=== PATIENT | male | born 1985 ===

== ENCOUNTER 2019-08-25 15:42 | Emergency (ER) | payer MEDICAID, SELFPAY ==
[2019-08-25] VITALS (7 sets, daily range): BP systolic 106–133; BP diastolic 74–91; PULSE 82–91; RESP 16–18; TEMP 37; O2SAT 96–100; BMI 21.8
--- NOTE | 2019-08-25 16:47 | W.ED.ABDPA2 ---
Documented by User: Cuco Lopez DO 08/25/19 21:38 HPI - Abdominal Pain General: Chief Complaint: Abdominal Pain Stated Complaint: abd pain/N/V Time Seen by Provider: 08/25/19 16:38 History of Present Illness: HPI narrative: 34-year-old male presents emergency room with complaint of epigastric pain for last 3 weeks. He was previously on pantoprazole stopped it because he lost his insurance coverage and did not have a job. He has been vomiting 1 or 2 times a day states is mostly count of foamy mucus he is not had any hematemesis denies coffee-ground emesis denies hematochezia or melena. He has noted that by varying his diet avoiding caffeine's carbonated beverages and meats it does improve it. He is not had any acholic stools. Denies fever denies any recent cough or cold symptoms denies dysuria urgency or frequency his bowel movements have been regular and seem normal tone he has tried various [id number] medications such as Mylanta and Pepto-Bismol with no significant relief. Of note he previously had a significant gastric ulcer that actually perforated and he required laparotomy. MD elicited complaint: abdominal pain Pertinent past history: gastrointestinal bleeding Onset (ago): week(s) (3) Pain Consistency: constant and colicky Location: Epigastric Severity: moderate Quality: cramping Radiation: none Migration to: no migration Exacerbating factors: eating (Particular foods see above) Context: history of similar episodes (Previous perforated ulcer with laparotomy) Associated Symptoms: Reports nausea, poor appetite and vomiting; Denies change in stool character, chills, coffee ground emesis, GI cramping, fever(s), hematochezia, hematuria, hematemesis and melena Treatments prior to arrival: antacids Review of Systems Const: Denies: fever or chills ENMT: Denies: throat pain, ear pain, nasal discharge or nasal congestion Card: Denies: chest pain, edema, shortness of breath on exertion or shortness of breath when lying down Resp: Denies: shortness of breath, productive cough or non-productive cough GI: Reports: abdominal pain, nausea and vomiting; Denies: vomiting blood, coffee grounds in vomit, cramping, change in stool character, blood in stool or black tarry stool : Denies: blood in urine Skin/Breast: Denies: rash or itching PFS ED PFSH: Medical History (Updated 08/25/19 @ 18:46 by Karolyn Valdez) Gastroesophageal reflux Perforated peptic ulcer Surgical History (Updated 08/25/19 @ 16:50 by Cuco Lopez DO) S/P laparotomy Social History Smoking and tobacco status: current every day smoker Physical Exam Const: COMMON NORMALS: no apparent distress GENERAL APPEARANCE: cooperative and comfortable ORIENTATION/CONSCIOUSNESS: Yes awake, Yes oriented to person, Yes oriented to place and Yes oriented to time HENMT: COMMON NORMALS: normocephalic, head/scalp atraumatic, hearing grossly normal bilaterally, external ears normal, EAC's normal, TM's normal bilaterally, nasal mucous membranes and turbinates normal, moist oral mucous membranes and oropharynx normal HEAD & SCALP: normocephalic and atraumatic NOSE: nasal mucous membranes and turbinates normal EXTERNAL EAR: Yes external ears normal EXTERNAL AUDITORY CANAL: EAC's normal TYMPANIC MEMBRANE: TM's normal bilaterally Eye: COMMON NORMALS: PERRL, EOMs intact bilaterally, conjunctivae normal and no scleral icterus CONJUNCTIVA: Yes conjunctivae normal PUPIL: Yes PERRL Neck/C-Spine: COMMON NORMALS: full ROM, no lymphadenopathy, supple and no JVD Lymph: LYMPHATIC: no lymphadenopathy noted and no lymphedema noted Resp: COMMON NORMALS: normal respiratory effort, no retractions, no use of accessory muscles and clear to auscultation bilaterally AUSCULTATION: clear to auscultation bilaterally Cardio: COMMON NORMALS: no JVD, regular rate, regular rhythm and no murmurs RATE: regular rate RHYTHM: regular rhythm GI: COMMON NORMALS: no hepatosplenomegaly AUSCULTATION: Yes normoactive bowel sounds PALPATION: Yes tender (Epigastric), No guarding, No rigid, Yes no hepatosplenomegaly, No mass and No rebound tenderness present RECTAL EXAM: Yes normal sphincter tone and Yes heme negative stool Extremity: COMMON NORMALS: normal to inspection, normal capillary refill, no clubbing, cyanosis or edema, no calf tenderness and no pedal edema Neuro: SENSORIUM/ORIENTATION: Yes oriented to person, Yes oriented to place and Yes oriented to time Skin: COMMON NORMALS: no rashes or lesions noted GENERAL SKIN EXAM: no rashes or lesions noted Course Vital Signs: Vital signs: Vital Signs Temperature 98.6 F 08/25/19 16:04 Pulse Rate 84 08/25/19 20:26 Respiratory Rate 16 08/25/19 20:26 Blood Pressure 133/74 08/25/19 20:26 Pulse Oximetry 96 08/25/19 20:26 MDM - Abdominal Pain MDM Narrative: Medical decision making narrative: Case signed out to Dr. Bradshaw at change of shift Lab Data: Labs: Lab Results 08/25/19 08/25/19 Range/Units 16:26 16:26 WBC 6.9 (4.0-10.0) 10^3/ uL RBC 5.41 H (4.1-5.3) 10^6/u L Hgb 16.0 (11.7-16.6) g/dL Hct 49.8 (42.0-52.0) % MCV 92.1 (80-94) fL MCH 29.6 (28.0-34.0) pg MCHC 32.1 (30.0-36.0) g/dL RDW 12.2 (12.1-15.1) % Plt Count 265 (130-400) 10^3/c mm MPV 9.9 (7.4-10.4) fL Neut % (Auto) 59.9 % Lymph % (Auto) 29.5 % [place] % (Auto) 6.1 % Eos % (Auto) 3.8 % Baso % (Auto) 0.6 % Neut # (Auto) 4.1 (1.8-7.7) 10^3/u L Lymph # (Auto) 2.0 (0.8-4.8) 10^3/u L [place] # (Auto) 0.4 (0.2-0.9) 10^3/u L Eos # (Auto) 0.3 (0.0-0.8) 10^3/u L Baso # (Auto) 0.0 (0.0-0.1) 10^3/u L Nucleated RBC % (a uto) 0 % Nucleated RBCs # 0.0 /100WBC Sodium 137 (136-145) mmol/L Potassium 3.9 (3.5-5.1) mmol/L Chloride 98 (98-107) mmol/L Carbon Dioxide 26 (22-29) mmol/L Anion Gap 16.9 (5-19) BUN 13 (6-20) mg/dL Creatinine 0.6 L (0.7-1.2) mg/dL GFR Calculation 155.2 H (90-130) mL/min Glucose 89 (65-115) mg/dL Calculated Osmolal ity 280 L (285-295) mOsm/k g Calcium 10.0 (8.5-10.5) mg/dL Total Bilirubin 0.4 (0.15-1.2) mg/dL AST 18 (0-40) U/L ALT 11 (0-41) U/L Alkaline Phosphata se 62 (40-130) IU/L Total Protein 8.0 (6.6-8.7) g/dL Albumin 4.7 (3.5-5.2) g/dL Globulin 3.3 (1.3-4.6) g/dL Lipase 14 (13-60) U/L Discharge Plan Discharge Patient Disposition: Home, Self-Care Clinical Impression: Enteritis Abdominal pain Qualifiers: Abdominal location: generalized Qualified Code(s): R10.84 - Generalized abdominal pain Condition: Stable Prescriptions: New Flagyl 500 mg tablet 500 mg PO Q8H 7 Days Qty: 21 RF: 0 Cipro 500 mg tablet 500 mg PO BID Qty: 20 RF: 0 promethazine 25 mg tablet 25 mg PO Q4H PRN (Reason: nausea and vomiting) Qty: 20 RF: 0 Protonix 40 mg tablet,delayed release (DR/EC) 40 mg PO DAILY 56 Days RF: 0 Discharge Orders: Discharge Order (Routine); Ordered 08/25/19 Ordered By: Karolyn Valdez Referrals: Kenton Epperson MD [Physician] - 1-3 days Discharge Diet: Advance as tolerated and Clear Liquid Discharge Activity: Increase activity as tolerated Patient Instructions: Abdominal Pain (ED) Activity Restrictions/Additional Instructions: Please return to the ER immediately for any of the signs or symptoms listed on your discharge instruction sheets, worsening/changing of your symptoms, you are not getting better as quickly as expected, or for ANY other cause or concerns. Follow a clear liquid diet and advance it as tolerated. Return to the ER for increased pain, fever, continued vomiting, or for any other cause for concern. Be certain to follow-up with Dr. Epperson on an outpatient basis for possible scoping of your stomach. Discharge Date/Time: 08/25/19 20:33 Sign Out Sign Out Data: Patient Sign Out occurred on 08/25/19 at 18:11. Patient's care was discussed, and care was transferred from Cuco Lopez DO to Karolyn Valdez. Sign Out Comment: Care signed out today and change of shift CT pending Last updated by Cuco Lopez DO at 08/25/19 18:04 Coding Level of Care Code ED [facility] Quality Control Technician for Chg Fwd Exam Comprehensive Documented by User: Karolyn Valdez 08/25/19 22:09 HPI - Abdominal Pain General: Chief Complaint: Abdominal Pain Stated Complaint: abd pain/N/V Time Seen by Provider: 08/25/19 16:38 [facility] ED PFSH: Medical History (Updated 08/25/19 @ 18:46 by Karolyn Vladez) Gastroesophageal reflux Perforated peptic ulcer Surgical History (Updated 08/25/19 @ 16:50 by Cuco Lopez DO) S/P laparotomy Social History Smoking and tobacco status: current every day smoker Course Vital Signs: Vital signs: Vital Signs Temperature 98.6 F 08/25/19 16:04 Pulse Rate 84 08/25/19 20:26 Respiratory Rate 16 08/25/19 20:26 Blood Pressure 133/74 08/25/19 20:26 Pulse Oximetry 96 08/25/19 20:26 MDM - Abdominal Pain MDM Narrative: Medical decision making narrative: 184 -patient care inherited by me at change of shift from Dr. Lopez. Please see his note for his history, physical exam and medical decision-making notes. Upon my exam the patient has no signs of peritonitis but has mild diffuse tenderness without any rebound or guarding. His vital signs are stable he is not tachycardic and is afebrile. I see no sign of sepsis. CT scan shows a normal appendix with no evidence of bowel obstruction, bowel perforation, gastric or duodenal ulcer. CT does shows diffuse small bowel wall thickening which I believe is most consistent with an infectious or inflammatory enteritis per his history. The patient is feeling better but his pain is not completely gone. I will go and give him a small amount of IV fluids, and medicines for his discomfort and he agrees to try a short course of Cipro and Flagyl with nausea medicine and to follow a clear liquid diet. I did review the symptoms for which he needs to return here for recheck and he understands these. He agrees to follow-up with Dr. Epperson as an outpatient for possible endoscopy for GERD and reflux disease. Lab Data: Labs: Lab Results 08/25/19 08/25/19 Range/Units 16:26 16:26 WBC 6.9 (4.0-10.0) 10^3/ uL RBC 5.41 H (4.1-5.3) 10^6/u L Hgb 16.0 (11.7-16.6) g/dL Hct 49.8 (42.0-52.0) % MCV 92.1 (80-94) fL MCH 29.6 (28.0-34.0) pg MCHC 32.1 (30.0-36.0) g/dL RDW 12.2 (12.1-15.1) % Plt Count 265 (130-400) 10^3/c mm MPV 9.9 (7.4-10.4) fL Neut % (Auto) 59.9 % Lymph % (Auto) 29.5 % [place] % (Auto) 6.1 % Eos % (Auto) 3.8 % Baso % (Auto) 0.6 % Neut # (Auto) 4.1 (1.8-7.7) 10^3/u L Lymph # (Auto) 2.0 (0.8-4.8) 10^3/u L [place] # (Auto) 0.4 (0.2-0.9) 10^3/u L Eos # (Auto) 0.3 (0.0-0.8) 10^3/u L Baso # (Auto) 0.0 (0.0-0.1) 10^3/u L Nucleated RBC % (a uto) 0 % Nucleated RBCs # 0.0 /100WBC Sodium 137 (136-145) mmol/L Potassium 3.9 (3.5-5.1) mmol/L Chloride 98 (98-107) mmol/L Carbon Dioxide 26 (22-29) mmol/L Anion Gap 16.9 (5-19) BUN 13 (6-20) mg/dL Creatinine 0.6 L (0.7-1.2) mg/dL GFR Calculation 155.2 H (90-130) mL/min Glucose 89 (65-115) mg/dL Calculated Osmolal ity 280 L (285-295) mOsm/k g Calcium 10.0 (8.5-10.5) mg/dL Total Bilirubin 0.4 (0.15-1.2) mg/dL AST 18 (0-40) U/L ALT 11 (0-41) U/L Alkaline Phosphata se 62 (40-130) IU/L Total Protein 8.0 (6.6-8.7) g/dL Albumin 4.7 (3.5-5.2) g/dL Globulin 3.3 (1.3-4.6) g/dL Lipase 14 (13-60) U/L Discharge Plan Discharge Patient Disposition: Home, Self-Care Clinical Impression: Enteritis Abdominal pain Qualifiers: Abdominal location: generalized Qualified Code(s): R10.84 - Generalized abdominal pain Condition: Stable Prescriptions: New Flagyl 500 mg tablet 500 mg PO Q8H 7 Days Qty: 21 RF: 0 Cipro 500 mg tablet 500 mg PO BID Qty: 20 RF: 0 promethazine 25 mg tablet 25 mg PO Q4H PRN (Reason: nausea and vomiting) Qty: 20 RF: 0 Protonix 40 mg tablet,delayed release (DR/EC) 40 mg PO DAILY 56 Days RF: 0 Discharge Orders: Discharge Order (Routine); Ordered 08/25/19 Ordered By: Karolyn Valdez Referrals: Kenton Epperson MD [Physician] - 1-3 days Discharge Diet: Advance as tolerated and Clear Liquid Discharge Activity: Increase activity as tolerated Patient Instructions: Abdominal Pain (ED) Activity Restrictions/Additional Instructions: Please return to the ER immediately for any of the signs or symptoms listed on your discharge instruction sheets, worsening/changing of your symptoms, you are not getting better as quickly as expected, or for ANY other cause or concerns. Follow a clear liquid diet and advance it as tolerated. Return to the ER for increased pain, fever, continued vomiting, or for any other cause for concern. Be certain to follow-up with Dr. Epperson on an outpatient basis for possible scoping of your stomach. Discharge Date/Time: 08/25/19 20:33 Sign Out Sign Out Data: Patient Sign Out occurred on 08/25/19 at 18:11. Patient's care was discussed, and care was transferred from Cuco Lopez DO to Karolyn Valdez. Sign Out Comment: Care signed out today and change of shift CT pending Last updated by Cuco Lopez DO at 08/25/19 18:04 Coding Level of Care Code ED [facility] Quality Control Technician for Chg Fwd Exam Comprehensive
[2019-08-25 16:49] LABS: Basophils % 0.6 %; Eosinophils # 0.3 10^3/uL (0.0-0.8); Eosinophils % 3.8 %; Hematocrit 49.8 % (42.0-52.0); Lymphocytes % 29.5 %; Mean Corpuscular HGB Conc 32.1 g/dL (30.0-36.0); Mean Corpuscular Hemoglobin 29.6 pg (28.0-34.0); Mean Corpuscular Volume 92.1 fL (80-94); Mean Platelet Volume 9.9 fL (7.4-10.4); Monocytes # 0.4 10^3/uL (0.2-0.9); Monocytes % 6.1 %; Neutrophils # 4.1 10^3/uL (1.8-7.7); Neutrophils % 59.9 %; Nucleated Red Blood Cells % 0 %; Platelet Count 265 10^3/cmm (130-400); Red Blood Count 5.41 10^6/uL (4.1-5.3); Red Cell Distribution Width 12.2 % (12.1-15.1); White Blood Count 6.9 10^3/uL (4.0-10.0)
--- NOTE | 2019-08-25 17:06 | CTR_ITS ---
PROCEDURE INFORMATION: Exam: CT Abdomen And Pelvis With Contrast Exam date and time: 08/25/2019 5:58 PM Age: 34 years old Clinical indication: Nausea and vomiting; Abdominal pain; Periumbilical; Prior surgery; Surgery type: Perforated ulcer; Additional info: Abd pain TECHNIQUE: Imaging protocol: Computed tomography of the abdomen and pelvis with intravenous contrast. Total DLP: 531.14 mGy-cm Radiation optimization: All CT scans at this facility use at least one of these dose optimization techniques: automated exposure control; mA and/or kV adjustment per patient size (includes targeted exams where dose is matched to clinical indication); or iterative reconstruction. Contrast material: OMNI 300; Contrast volume: 95 ml; Contrast route: IV; COMPARISON: No relevant prior studies available. FINDINGS: Liver: Unremarkable.No mass. Gallbladder and bile ducts: Normal. No calcified stones. No ductal dilation. Pancreas: Normal. No ductal dilation. Spleen: Normal. No splenomegaly. Adrenals: Normal. No mass. Kidneys and ureters: There is no evidence of hydronephrosis. There is no evidence of renal calcifications. Stomach and bowel: The stomach is moderately distended with food and secretions. The wall is mildly thickened compatible with lack of distension. No focal duodenal wall thickening or definite ulcer is identified. There is diffuse small bowel wall thickening, consistent with infectious, ischemic, or inflammatory enteritis. The colon has an unremarkable appearance. No wall thickening or inflammatory changes. There is a small to moderate amount of colonic stool. No impaction. Appendix: A normal appendix is identified. Intraperitoneal space: There is no free intraperitoneal air. There is some mild haziness of the mesenteric fat compatible with reactive changes to enteritis. Vasculature: Unremarkable.No abdominal aortic aneurysm. Lymph nodes: Unremarkable.No enlarged lymph nodes. Bladder: The bladder is normal. Reproductive: Unremarkable as visualized. Bones/joints: There is disc space narrowing with endplate degenerative changes at L5-S1. Vacuum discs are noted at L4-L5 and L5-S1. Soft tissues: Unremarkable. Other findings: No abscess. CT/CT abdomen pelvis w con* [id number] IMPRESSION: There is diffuse small bowel wall thickening, consistent with infectious, ischemic, or inflammatory enteritis. Unremarkable appendix. No ileus or obstruction. No free air. Radiation Dose CTDIVOL = (mGy): DLP = 531.14 (mGy-cm)
[2019-08-25 17:07] LABS: Alanine Aminotransferase 11 U/L (0-41); Albumin Level 4.7 g/dL (3.5-5.2); Alkaline Phosphatase 62 IU/L (40-130); Anion Gap 16.9 (5-19); Aspartate Amino Transferase 18 U/L (0-40); Blood Urea Nitrogen 13 mg/dL (6-20); Carbon Dioxide 26 mmol/L (22-29); Chloride 98 mmol/L (98-107); Globulin 3.3 g/dL (1.3-4.6); Glomerular Filtration Rate 155.2 mL/min (90-130); Glucose 89 mg/dL (65-115); Lipase 14 U/L (13-60); Osmolality Calculated 280 mOsm/kg (285-295); Potassium 3.9 mmol/L (3.5-5.1); Sodium 137 mmol/L (136-145); Total Bilirubin 0.4 mg/dL (0.15-1.2)
[2019-08-25] MEDS: ondansetron 2 mg/ML SDV 2 mL 4 MG IVP ×2 (17:47→19:22)
[2019-08-25] MEDS: morphine 4 mg/mL SDV 1 mL IVP (17:47)
[2019-08-25] MEDS: sodium chloride 0.9% 1,000 ML 999 ML IV ×2 (17:47→19:24)
[2019-08-25] MEDS: lidocaine 2% viscous 15 ML, aluminum-mag hydrox-simethicon 30 ML, sucralfate oral liq 1 GM PO (17:54)
[2019-08-25] MEDS: iohexol 300 mg/mL 100 mL Btl IV (18:10)
[2019-08-25] MEDS: HYDROmorphone 1 mg/mL INJ 1 mL 0.5 MG IVP ×2 (19:22→20:23)
[2019-08-25] MEDS: pantoprazole 40 mg SDV 80 MG IVP (19:23)
[2019-08-25] MEDS: ciprofloxacin 500 mg Tablet PO (19:23)
[2019-08-25] MEDS: metroNIDAZOLE 500 MG Tablet PO (19:23)
--- NOTE | 2019-08-29 10:38 | DCPLANNER ---
transit manager had message to schedule a follow up appointment for patient with general surgery. transit manager called [facility], spoke with Shaye. A follow up appointment was scheduled for Friday, August 30, 2019 at 2:[address] Epperson. Clinic will call patient with appointment information.
--- NOTE | 2019-09-20 14:47 | DCPLANNER ---
Patient did not attend appointment scheduled with [facility].
== END 2019-08-25 20:33 | disposition home or self-care (01) ==
PROVIDERS: Emergency Medicine; Emergency Provider Emergency Medicine
DX: R10.84 Generalized abdominal pain (principal); F17.210 Nicotine dependence, cigarettes, uncomplicated
CPT/HCPCS: 12345; 36415; 74177; 80053; 83690; 85025; 96360; 96361; 96374; 96375; 96376; 99283; 99284; C9113; J1170; J2270; J2405; J7030; Q9967